=== PATIENT | female | born 1965 | race Caucasian/White ===

== ENCOUNTER 2019-08-27 02:46 | Emergency (ER) | payer OTHER, SELFPAY ==
--- NOTE | ~2019-08-27 | CT_ITS ---
EXAMINATION: CT abdomen pelvis wo con DATE: 08/27/2019 03:54 INDICATION: Left flank pain TECHNIQUE: Computed tomography (CT) of the abdomen and pelvis was performed without intravenous contr ast. The dose-length product (DLP) was 273.17 mGy-cm. Automated exposure control and iterative recons truction technique were employed. COMPARISON: 09/11/2015 FINDINGS: There is mild emphysema of the visualized lung bases. The heart size is normal. The gallbla dder is surgically absent. Punctate calcifications in an otherwise normal spleen likely represent hea led granulomatous disease. The pancreas and right adrenal gland are normal. There is a stable adenoma of the left adrenal gland. There is an 8 mm nonobstructing stone of the right kidney lower pole. Cys ts of the right kidney measure up to 5.1 cm. The left kidney is unremarkable. An area of apparent wal l thickening of the colon at the splenic flexure is likely due to incomplete distention given the pat ient's normal colonoscopy on 01/02/2019. There are changes of interval appendectomy. Colonic diverticul osis is present without evidence of diverticulitis. No pathologically enlarged abdominal or pelvic ly mph nodes are identified. There is no free intraperitoneal gas or evidence of bowel obstruction. A sm all fat-containing umbilical hernia is present. There is mild lower lumbar spondylosis. IMPRESSION: 1. No CT correlate for the patient's symptoms. Reviewed, dictated and finalized at location A. AINER WASHER
[2019-08-27 02:56] VITALS: BP 151/97; PULSE 96; RESP 18; TEMP 36.1; O2SAT 100
[2019-08-27] MEDS: MORPHINE SULFATE 4 MG/ML INJ IV PUSH (03:40)
[2019-08-27] MEDS: SODIUM CHLORIDE 0.9% IV 1,000 ML 999 ML IV CONT (03:40)
[2019-08-27 03:57] LABS: Add Urine Microscopic? YES; Appearance Urine Cloudy (Clear); Bacteria Urine 2+ /hpf; Bilirubin Urine Negative (Negative); Blood Urine 1+ (Negative); Color Urine Yellow (Yellow); Glucose Urine UA Negative (Negative); Ketones Urine Negative (Negative); Leukocyte Esterase Ur 3+ LEU/UL (Negative); Mucus Urine Rare /lpf; Nitrate Urine Positive (Negative); Protein Urine Negative (Negative); Specific Grav Ur 1.019 (1.001-1.035); Squamous Epithelial Cell Urine Rare /hpf (Few); Urobilinogen Urine Negative mg/dL (<2.0); WBC Urine 51-75 /hpf
[2019-08-27 04:01] VITALS: BP 147/76; PULSE 81; RESP 16; O2SAT 100
[2019-08-27 04:10] VITALS: TEMP 36.1
--- NOTE | 2019-08-27 04:40 | ED.BACK ---
HPI - Back Pain/Injury General Chief Complaint: Back Pain/Injury Stated Complaint: BACK PAIN VS KIDNEY STONES Time Seen by Provider: 08/27/19 02:57 History of Present Illness HPI Narrative: Patient is a 54-year-old female who presents the ER with left-sided back pain. Some low lumbar region. Ongoing for last couple days. It intensified this evening and is associated with nausea and vomiting. She reports the pain is started radiating around into her left abdomen. Denies burning urination/hematuria/urinary frequency. No chest pain/shortness of breath/diarrhea. No recent trauma to her back. She does report that she goes to a chiropractor and she is been there twice over the last couple days. Initially she went to chiropractor and had an adjustment and then began having pain on her way home. Patient is found no alleviating factors for the nausea/vomiting/back pain. It is worsened with movement. Related Data Allergies Allergy/AdvReac Type Severity Reaction Status Date / Time No Known Allergies Allergy Unverified 08/27/19 02:48 Review of Systems Review of Systems: All systems reviewed & are unremarkable except as noted in HPI and below Constitutional: Constitutional: Denies chills, Denies fever(s) and Denies weakness Respiratory: Respiratory: Denies cough and Denies dyspnea Gastrointestinal: Gastrointestinal: Reports abdominal pain, Denies diarrhea, Reports nausea and Reports vomiting Genitourinary: Genitourinary: Denies hematuria, Denies nocturia, Denies dysuria and Denies flank pain Musculoskeletal: Musculoskeletal: Reports back pain and Reports muscle cramps Neurologic: Denies dizziness, Denies focal weakness and Denies numbness PMFSH Past Medical History Medical History (Updated 08/27/19 @ 05:03 by Robbin Martinez MD) No pertinent past medical history Surgical History Surgical History (Updated 07/09/19 @ 16:05 by Kiera Clark) History of appendectomy Social History Social History Smoking status: Light tobacco smoker Second hand tobacco smoke exposure: No Alcohol intake: never Gender identity (if verbalized by the patient): Female Exam Narrative: Exam Narrative: GENERAL: Uncomfortable-appearing, well-nourished, and in milddistress. HEAD: Normocephalic, atraumatic. ENT: Mucous membranes moist. CHEST: Clear to auscultation. No respiratory distress. HEART: Regular rate and rhythm. Normal peripheral pulses. ABDOMEN: Soft, nontender, nondistended. EXTREMITIES: Normal range of motion. No edema. Back: No CVA tenderness. Significant tenderness over the low lumbar paraspinal musculature with spasm. No midline tenderness of the thoracic or lumbar spine. NEURO: No focal deficits. Alert and oriented x3. PSYCH: Normal mood and affect. Course Course Emergency Course: Patient informed of results. Pain improved with morphine. Discharge home with supportive medications. Vital Signs Vital signs: Vital Signs Temperature 96.9 F L 08/27/19 02:56 Pulse Rate 96 08/27/19 02:56 Respiratory Rate 18 08/27/19 02:56 Blood Pressure 151/97 H 08/27/19 02:56 Pulse Oximetry 100 08/27/19 02:56 Temperature 96.9 F L 08/27/19 04:10 Pulse Rate 96 08/27/19 02:56 Respiratory Rate 18 08/27/19 02:56 Blood Pressure 151/97 H 08/27/19 02:56 Pulse Oximetry 100 08/27/19 02:56 MDM - Back Pain/Injury Lab Data Labs: Lab Results 08/27/19 Range/Units 03:40 Urine Color Yellow (Yellow) Urine Appearance Cloudy H (Clear) Urine pH 6.0 (5.0-9.0) Ur Specific [place] 1.019 (1.001-1.035) Urine Protein Negative (Negative) mg/dL Urine Glucose (UA) Negative (Negative) mg/dL Urine Ketones Negative (Negative) mg/dL Ur Blood (Man) 1+ H (Negative) Urine Nitrate Positive H (Negative) Urine Bilirubin Negative (Negative) Urine Urobilinogen Negative (<2.0) mg/dL Leukocyte Esterase Rfl 3+ H (Negative) AURELIO/UL Urine RBC 6-10 H (0-2) /hpf Urine WBC 51
[2019-08-27 05:24] VITALS: BP 157/87; PULSE 75; RESP 18; TEMP 36.2; O2SAT 99
== END 2019-08-27 05:26 | disposition home or self-care (01) ==
PROVIDERS: Emergency Provider Emergency Medicine; PCP Family Medicine
DX: N39.0 Urinary tract infection, site not specified (principal); M62.830 Muscle spasm of back; F17.200 Nicotine dependence, unspecified, uncomplicated
CPT/HCPCS: 74176; 81001; 87077; 87086; 87088; 87186; 96361; 96374; 99284; J2270; J7030

== ENCOUNTER 2021-03-02 12:59 | Outpatient (CLI) | payer OTHER, SELFPAY ==
--- NOTE | ~2021-03-02 | MM_ITS ---
EXAMINATION: MM screening [facility] w [facility] HISTORY: Screening TECHNIQUE: Craniocaudal and mediolateral oblique 3-D tomosynthesis images were obtained and synthetic 2-D images were generated. CAD analysis was submitted and interpreted. COMPARISON: Comparison to multiple prior studies sequentially, with oldest reviewed study dated 04/30. BREAST PARENCHYMAL COMPOSITION: Breast composed of scattered areas of fibroglandular density FINDINGS: There is no evidence of suspicious mass, calcification, or architectural distortion to sugg est malignancy in either breast. There has been no suspicious interval change. IMPRESSION: 1. No mammographic evidence of malignancy. 2. Recommend routine screening mammography in one year. BI-RADS Category 1: Negative Reviewed, dictated and finalized at location A.
--- NOTE | ~2021-03-02 | DEXA_ITS ---
Bone Density Report Name: Isabell Chandler Age: 55 Sex: Female Ethnicity: White Date of : 1965 Indication: postmenopausal; height loss; Referring Provider: Belén Morales Study: Bone densitometry was performed. Exam Date: March 02, 2021 Accession number: [id number] Bone Density: Region BMD T-score Z-score Classification AP Spine (L1-L4) 1.026 -0.2 0.9 Normal Femoral Neck (Left) 0.826 -0.2 0.8 Normal Total Hip (Left) 0.870 -0.6 0.1 Normal Total Hip Bilateral Avg 0.855 -0.7 -0.1 Normal Femoral Neck (Right) 0.751 -0.9 0.2 Normal Total Hip (Right) 0.839 -0.8 -0.2 Normal World Health Organization criteria for BMD impression classify patients as: Normal (T-score at or above -1.0), Osteopenia (T-score between -1.0 and -2.5), or Osteoporosis (T-score at or below -2.5). 10-year Fracture Risk: FRAX not reported because: All T-scores for Spine Total, Hip Total, Femoral Neck at or above -1.0 Previous Exams: Region Exam Age BMD T-score BMD Change BMD Change Date g/cm2 vs Baseline vs Previous AP Spine(L1-L4) 03/02/2021 55 1.026 -0.2 -0.127(-11.0%) -0.127(-11.0%) 01/21/2010 44 1.153 1.0 Total Hip(Left) 03/02/2021 55 0.870 -0.6 -0.151(-14.7%) -0.151(-14.7%) 01/21/2010 44 1.021 0.6 Total Hip(Right) 03/02/2021 55 0.839 -0.8 -0.121(-12.6%) -0.121(-12.6%) 01/21/2010 44 0.960 0.1 *Denotes significance at 95% confidence level, LSC for AP Spine = 0.022 g/cm2, LSC for Total Hip = 0.027 g/cm2 Clinical Information Provided by Patient: Has used the following medications: Vitamin D Patient maximum height was 67 Menopause Age: 50 No regular weight bearing exercise Does not regularly consume dairy products Drinks caffeinated beverages Onset of menses at age 10 Number of children 4 Impression: The patient has normal bone mass. No significant bone loss was observed. Discussion: BONE DENSITY IS ABOVE THE MINIMUM DESIRABLE LEVEL AT ALL SKELETAL SITES TESTED. This patient?s bone mineral density is above the minimum desirable level (T-score -1.0 or better) at all sites measured. The patient should follow a healthful lifestyle (good nutrition with adequate calcium and vitamin D, and appropriate weight-bearing exercise). Follow-Up: Consider repeating this study in 5 years or sooner if there is some new clinical indication. Reported by: VALENTINE on 03/02/2021 1:29:00 PM. Reviewed, dictated and finalized a
== END 2021-03-02 13:00 | disposition home or self-care (01) ==
LOC: ANHIMG 13:02
PROVIDERS: PCP Family Medicine; Visit Provider Student in an Organized Health Care Education/Training Program
DX: Z12.31 Encounter for screening mammogram for malignant neoplasm of breast (principal); Z78.0 Asymptomatic menopausal state
CPT/HCPCS: 77063; 77067; 77080